=== PATIENT | female | born 1995 | race Caucasian/White ===

== ENCOUNTER 2018-09-04 19:03 | Emergency (ER) | payer OTHER ==
[2018-09-04 19:55] VITALS: BP 136/67
--- NOTE | 2018-09-04 19:59 | UC ---
Respiratory Complaint HPI - HPI Summary HPI Summary: 23 year old female with PMh + for tob use, h/o pna, bronchitis presents with cough, congestion, productive cough- yellow phlegm, chills, x 3-4 days. Denies fever, but + hot flashes/ cold sweats. Decreased appetite. + sinus pressure, ear fullness, no pain. no throat pain. feels cough was in throat, now in lungs. no meds OTCs no benefit - History of Current Complaint Chief Complaint: UCRespiratory Stated Complaint: COUGH/CONGESTION Time Seen by Provider: 09/04/18 19:58 Hx Obtained From: Patient Hx Last Menstrual Period: 08/12/18 ?: No Onset/Duration: Sudden Onset, Lasting Days - 3 Timing: Constant Severity Initially: Moderate Severity Currently: Moderate Pain Intensity: 5 Character: Cough: Productive Aggravating Factors: Deep Breaths Alleviating Factors: OTC Meds Associated Signs And Symptoms: Positive: Fever, Chills, Wheezing, Nasal Congestion - Allergies/Home Medications Allergies/Adverse Reactions: Allergies Allergy/AdvReac Type Severity Reaction Status Date / Time No Known Allergies Allergy Verified 09/04/18 19:50 PMH/Surg Hx/FS Hx/Imm Hx Previously Healthy: Yes - Surgical History Surgical History: None - Family History Known Family History: Negative: Cardiac Disease, Hypertension, Diabetes - Social History Alcohol Use: Occasionally Substance Use Type: None Smoking Status (MU): Light Every Day Tobacco Smoker Type: Cigarettes Amount Used/How Often: <1/4 PPD Length of Time of Smoking/Using Tobacco: started ~ age 15 Have You Smoked in the Last Year: Yes Household Exposure Type: Cigarettes - Immunization History Most Recent Influenza Vaccination: 01/2015 Review of Systems All Other Systems Reviewed And Are Negative: Yes Constitutional: Positive: Chills, Fatigue ENT: Positive: Sinus Congestion Respiratory: Positive: Shortness Of Breath, Cough Is Patient Immunocompromised?: No Physical Exam Triage Information Reviewed: Yes Appearance: No Pain Distress, Well-Nourished, Ill-Appearing - mild Vital Signs: Initial Vital Signs Temp 96.9 F 09/04/18 19:50 Pulse 97 09/04/18 19:50 Resp 18 09/04/18 19:50 BP 136/67 09/04/18 19:50 Pulse Ox 99 09/04/18 19:50 Vital Signs Reviewed: Yes Eyes: Positive: Conjunctiva Clear ENT: Positive: Hearing grossly normal, Pharynx normal, TMs normal, Uvula midline. Negative: Nasal congestion, TM bulging, TM dull, TM red, Tonsillar swelling, Tonsillar exudate, Sinus tenderness Neck: Positive: Supple, Nontender, No Lymphadenopathy. Negative: Nuchal Rigidity, Enlarged Nodes @ Respiratory: Positive: Chest non-tender, No respiratory distress, No accessory muscle use, Rhonchi - L LL, wheezing b/l, Wheezing. Negative: Respiratory distress, Decreased breath sounds Cardiovascular: Positive: RRR, No Murmur Abdomen Description: Positive: Nontender, No Organomegaly, Soft, Bruit Psychological Exam: Normal Skin Exam: Normal Respiratory Course/Dx - Course Course Of Treatment: possible CAP, patients step father dx'd with PNA this week. ABX, follow up with PCP if no improvemnt - ANtibiotics as directed - Return for re-eavluation if no improvement of symptoms within 2-3 days - REturn with increase symptoms, fever > 102, neck pain not relieved by medication - Tylenol/ Motrin as needed for pain, fever - Increase fluid intake - WOrk note given - Differential Dx/Diagnosis Differential Diagnosis/HQI/PQRI: Bronchitis Provider Diagnosis: CAP (community acquired pneumonia) Discharge - Sign-Out/Discharge Documenting (check all that apply): Patient Departure All imaging exams completed and their final reports reviewed: No Studies - Discharge Plan Condition: Good Disposition: HOME Prescriptions: Albuterol HFA INHALER* [Ventolin HFA Inhaler*] 1 - 2 puff INH Q4H PRN #1 mdi PRN Reason: cough, shortness of breath Azithromyxin KATHIE (NF) [Z-Kathie (Zithromax) 250 mg tabs #6] 2 tab PO .TODAY, THEN 1 DAILY #6 tab Patient Education Materials: Community Acquired Pneumonia (ED) Forms: *Work Release Referrals: Nav Membreno MD [Primary Care Provider] - Additional Instructions: - ANtibiotics as directed - Return for re-eavluation if no improvement of symptoms within 2-3 days - REturn with increase symptoms, fever > 102, neck pain not relieved by medication - Tylenol/ Motrin as needed for pain, fever - Increase fluid intake - WOrk note given - Billing Disposition and Condition Condition: GOOD Disposition: Home
== END 2018-09-04 20:19 | disposition home or self-care (01) ==
LOC: UCCORT 19:03
DX: J18.9 Pneumonia, unspecified organism (principal); F17.210 Nicotine dependence, cigarettes, uncomplicated
CPT/HCPCS: 99212; G0463